=== PATIENT | female | born 1960 | race Caucasian/White ===

== ENCOUNTER 2020-06-07 11:11 | Outpatient (CLI) | payer MEDICAID ==
[~2020-06-07] VITALS: Ht 165.1 cm; Wt 76.1 kg
--- NOTE | ~2020-06-07 | HEMODYNAMI ---
PATIENT:ELIJAH MATHIAS MEDICAL RECORD: [id number] : 64 LOCATION:[facility] ADMISSION DATE: 06/07/20 Generatedon:06/07/202013:28 Patient name: ELIJAH MATHIAS Patient #: [id number] SSN: [id number] : 1960 Date of study: 06/07/2020 Page: Of Hemodynamic Procedure Report Patient Data Patient Demographics Procedure consent was obtained First Name: ELIJAH Gender: Female Last Name: MEY : 1960 Patient #: [id number] Age: 59 year(s) Race: SSN: [id number] Additional ID: [id number] Contact details Address: [place] [address] State: [place] City: [place] Zip code: [address] Past Medical History Allergies Allergen Reaction Date Comments Reported Other allergy 06/07/2020 CODINE Admission Admission Data Admission Date: 06/07/2020 Admission Time: 11:11 Arrival Date: 06/07/2020 Arrival Time: 0:00 Insurance Payor: Medicaid Height (in.): 64.96 BSA: 1.83 (m2) Height (cm.): 165 BMI: 27.92 (kg/m2) Weight (lbs.): 167.55 Weight (kg.): 76 Lab Results Lab Result Date: 06/07/2020 Lab Result Time: 0:00 Biochemistry Name Units Result Min Max BUN mg/dl 17 --(---*)-- 7 18 Creatinine mg/dl 0.8 --(-*--)-- 0.6 1.3 eGFR ml/min 78 *-(----)-- 90 120 NONAFRICAN CBC Name Units Result Min Max Hematocrit % 40.7 -*(----)-- 42 54 Hemoglobin g/dl 13.2 -*(----)-- 13.5 17.5 Procedure Procedure Types Cath Procedure Diagnostic Procedure C [facility] w/Coronaries Sedation Charges Moderate Sedation up to 15 minutes Procedure Description Procedure Date Procedure Date: 06/07/2020 Procedure Start Time: 13:13 Procedure End Time: 13:27 Procedure Staff Name Function Panda Cox MD Performing Physician Dedra Rivas RT Monitor Dior Daniel RN Nurse Bria Kaur RT Scrub Indication Abnormal nuclear perfusion study Procedure Data Cath Procedure Fluoroscopy Diagnostic fluoroscopy Total fluoroscopy Time: 1.6 time: 1.6 min min Diagnostic fluoroscopy Total fluoroscopy dose: 381 dose: 381 mGy mGy Contrast Material Contrast Material Type Amount (ml) Isovue 300 47 Entry Location Entry Primary Successful Side Size Upsize Upsize Entry Closure Succes sful Closure Location (Fr) 1 (Fr) 2 (Fr) Remarks Device Remarks Femoral Right 5 Fr Exoseal artery Estimated blood loss: 5 ml Diagnostic catheters Device Type Used For End Catheter Placement MULTIPACK JL 4.0 5Fr Left Coronary catheter Angiography MULTIPACK 3DRC 5Fr Right Coronary catheter Angiography MULTIPACK Pigtail 5 Fr LV Angiography catheter Procedure Complications No complications Procedure Medications Medication Administration Route Dosage 0.9% NaCl I.V. 100 ml/hr Oxygen etCO2 Nasal cannula 2 l/min Lidocaine 2% added to field 20 Heparin Flush Bag added to field 2 bags (1000units/500ml NS) Versed I.V. 2 mg Fentanyl I.V. 50 mcg Versed I.V. 2 mg Fentanyl I.V. 50 mcg Hemodynamics Rest BSA: 1.83 (m2) HGB: 13.2 (g/dl) O2 Consumption: Estimated: 167 (ml/min) O2 Consu mption indexed: Estimated:91.26 (ml/min/m) Heart Rate: 58 (bpm) Pressure Samples Time Site Value (mmHg) Purpose Heart Use Rate(bpm) 13:21 LV 155/13,19 Snapshot 66 Gradients Valve Time Site Site Mean SEP/DFP Peak To Heart Use 1 2 (mmHg) (sec/min) Peak Rate (mmHg) (bpm) Aortic 13:21 LV AO 64 Snapshots Pre Cath Intra NCS Post Cath Vital Signs Time Heart Resp SPO2 etCO2 NIBP (mmHg) Rhythm Pain Sedation Rate (ipm) (%) (mmHg) Status Level (bpm) 13:03:52 55 19 100 40.4 Measuring NSR 0 (11) 10(A) , No pain 13:03:58 61 19 100 37.4 167/97(117) NSR 0 (11) 10(A) , No pain 13:08:20 58 15 98 45.6 158/91(110) NSR 0 (11) 10(A) , No pain 13:12:40 60 12 99 47.9 145/85(110) NSR 0 (11) 10(A) , No pain 13:16:58 63 13 97 47.9 148/79(104) NSR 0 (11) 10(A) , No pain 13:21:12 63 13 97 42.6 143/86(109) NSR 0 (11) 10(A) , No pain 13:25:28 62 15 98 35.9 138/82(104) NSR 0 (11) 10(A) , No pain Medications Time Medication Route Dose Verified Delivered Reason Notes Eff ectiveness by by 13:02:11 0.9% NaCl I.V. 100 Panda Dior used for ml/hr Brooke Fredy procedure MD TEE 13:02:18 Oxygen etCO2 2 Panda Dior used for [facility]al l[facility] TEE 13:02:24 Lidocaine 2% added 20ml Panda Panda for local to vial [facility] anesthetic field MD BEATTY 13:02:28 Heparin Flush added 2 Panda Panda used for Bag to bags [facility] procedure (1000units/500ml field MD BEATTY NS) 13:10:37 Versed I.V. 2 mg Panda Dior for Brooke Fredy sedation MD TEE 13:10:54 Fentanyl I.V. 50 Panda Dior for mcg BrookeAndrew Daniel sedation MD TEE 13:15:33 Versed I.V. 2 mg Panda Dior for Brooke Fredy sedation MD TEE 13:15:42 Fentanyl I.V. 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 12:26:41 Time tracking: Regular hours (M-F 7:00 - 5:00) 12:26:57 Plan of Care:Hemodynamics will remain stable., Cardiac rhythm will remain stable., Comfort level will be maintained., Respiratory function will remain adequate., Patient/ family verbilizes understanding of procedure., Procedure tolerated without complication., Recovers from procedure without complications.. 12:43:03 Lab Result : Hemoglobin 13.2 g/dl 12:43: Lab Result : Hematocrit 40.7 % 12:43: Lab Result : eGFR NONAFRICAN 78 ml/min 12:43:03 Lab Result : BUN 17 mg/dl 12:43:03 Lab Result : Creatinine 0.8 mg/dl 12:43:34 Patient Height : 64.96 inches 12:43:38 Patient Weight : 167.55 lbs 12::42 Arrival Date: 06/07/2020 12:00:00 AM 12:44:16 Insurance Payor : Medicaid 12:44:36 Lab results completed and on chart. 13:00:14 Dedra ARSHAD(R) (CV) sent for patient. Start room use. 13:02:03 Vital chart was started 13:02:11 0.9% NaCl 100 ml/hr I.V. was administered by Dior Daniel RN; used for procedure; Verbal order read back and verified. 13:02:18 Oxygen 2 l/min etCO2 Nasal cannula was administered by Dior Daniel RN ; used for procedure; Verbal order read back and verified. 13:02:24 Lidocaine 2% 20ml vial added to field was administered by Panda Cox MD; for local anesthetic; Verbal order read back and verified. 13:02:28 Heparin Flush Bag (1000units/500ml NS) 2 bags added to field was administered by Panda Cox MD; used for procedure; Verbal order read back and verified. 13:06:21 Patient received from Pre/Post Procedure Room to CCL 1 Alert and oriented. Tansferred to table in Supine position. 13:06:23 Warm blankets applied, and juan diego hugger turned on for patient comfort. 13:06:24 Correct patient and procedure confirmed by team. 13:06:25 ECG and BP/O2 sat monitors applied to patient. 13:06:27 Baseline sample Acquired. 13:06:33 Rhythm: sinus rhythm 13:07:58 Full Disclosure recording started 13:07:59 - 13:08:05 H&P Date Dictated: 06/07/2020 H&P Addendum completed by physician on day of procedure. (MUST COMPLETE FOR ALL OUTPATIENTS), New H&P dictated by physician.. 13:08:07 Pre-procedure instructions explained to patient. 13:08:08 Pre-op teaching completed and patient verbalized understanding. 13:08:10 Family in patients room. 13:08:13 Patient NPO since Midnight. 13:08:27 Patient allergic to Other allergyCODINE 13:08:36 Is patient on blood thinner?No 13:08:38 Patient diabetic? No. 13:08:40 ----Pre-sedation anethsthesia assessment.---- 13:08:44 Previous problem with sedation/anesthesia? No ? 13:08:46 Snore? Yes 13:08:48 Sleep apnea? No 13:08:51 Opens mouth fully? Yes 13:08:54 Sticks out tongue? Yes 13:08:57 Airway obstruction? No ? 13:09:04 Dentures? Yes UPPER IN TIGHT 13:09:26 IV patent on arrival in left forearm with 0.9% NaCl at [facility]. 13:09:35 Right Radial & Right Groin area was prepped with chlora-prep and draped in sterile fashion 13:09:37 Alarms reviewed by R. N. 13:09:38 Sharps counted by scrub and verified by R.N. 13:09:39 Physician arrived 13:09:40 --------ALL STOP TIME OUT------ 13:09:45 Final Timeout: patient, procedure, and site verified with staff and physician. All members of the team are in agreement. 13:09:47 Right Radial & Right Groin site verified by team. 13:09:52 Fire Safety Assessment: A--An alcohol-based skin anteseptic being used preoperatively., C--Open oxygen or nitrous oxide is being used., D--An ESU, laser, or fiber-optic light is being used. 13:09:57 Physical assessment completed. ASA score P 2 - A patient with mild systemic disease as per Panda Cox MD. 13:10:07 2) 60-89 Mildly reduced kidney function, and other findings (as for stage 1) point to kidney disease. 13:10:12 Maximum allowable contrast dose (3.7 X eGFR X 0.75)216 ml. 13:10:18 Sedation plan: IV Moderate Sedation Medication:Versed, Fentanyl 13:10:25 Use device set Radial Dx or PCI 13:10:27 ACIST Syringe (18653) opened to sterile field. 13:10:27 Medline Cath Pack ([id number]) opened to sterile field. 13:10:28 Bag Decanter (2002) opened to sterile field. 13:10:29 ACIST Hand Control (08799) opened to sterile field. 13:10:30 ACIST Manifold (21481) opened to sterile field. 13:10:32 MBrace Wrist Support (707471803) opened to sterile field. 13:10:34 EMERALD Guide Wire (293-017) opened to sterile field. 13:10:34 SHEATH 6FR RAIN (4591539) opened to sterile field. 13:10:37 Versed 2 mg I.V. was administered by Dior Daniel RN; for sedation; Verbal order read back and verified. 13:10:54 Fentanyl 50 mcg I.V. was administered by Dior Daniel RN; for sedation ; Verbal order read back and verified. 13:10:54 Zero performed for pressure channel P1 13:11:06 Procedure started. 13:12:35 Risk of Mortality: 0.1 13:12:40 Risk of blood transfusion: 0.2 13:12:44 Risk of SANDI: 1.0 13:13:05 Stress Test: yes; abnormal ANTERIOR 13:13:17 Local anesthetic to right radial artery with Lidocaine 2% by Panda Cox MD.INITIAL ACCESS ONLY 13:15:33 Versed 2 mg I.V. was administered by Dior Daniel RN; for sedation; Verbal order read back and verified. 13:15:42 Fentanyl 50 mcg I.V. was administered by Dior Daniel RN; for sedation ; Verbal order read back and verified. 13:16:19 UNABLE TO OBTAIN RADIAL ACCESS, MOVING TO RIGHT GROIN. 13:16:25 Local anesthetic to right femoral artery with Lidocaine 2% by Panda Morales MD.ADDITIONAL ACCESS 13:16:35 SHEATH 5FR Admire (RHN637) opened to sterile field. 13:16:51 DIAGNOSTIC Multipack 5Fr catheter set ([id number]) opened to sterile field. 13:17:22 A 5 Fr sheath was inserted into the Right Femoral artery 13:17:33 Use device set Multipack Set 13:17:40 A MULTIPACK JL 4.0 5Fr catheter was advanced over the wire and used for Left Coronary Angiography. 13:17:47 LCA angiography performed. 13:17:51 Injector settings: Ml/sec: 3, Volume: 6, 13:18:44 Catheter removed. 13:18:55 A MULTIPACK 3DRC 5Fr catheter was advanced over the wire and used for Right Coronary Angiography. 13:19:21 RCA angiography performed. 13:19:25 Injector settings: Ml/sec: 3, Volume: 6, 13:19:28 Catheter removed. 13:19:35 A MULTIPACK Pigtail 5 Fr catheter was advanced over the wire and used for LV Angiography. 13:19:44 Injector settings: Ml/sec: 5, Volume: 15, 13:19:47 LV gram done using CRUZ 13:19:49 LV hemodynamics recorded. 13:21:26 EF : 60 % 13:21:39 EXOSEAL 5Fr (EX500) opened to sterile field. 13:22:07 Tegaderm 4 x 4 (1626W) opened to sterile field. 13:22:13 Catheter removed. 13:22:31 Sheath removed intact; hemostasis achieved with Exoseal to the Right Femoral artery. 13:22:35 Procedure ended.(Physican Out) 13:22:54 Contrast amount:Isovue 300 47ml. 13:22:57 Maximum allowable dose exceeded? No. 13:23:05 Fluoroscopy time 01.60 minutes. 13:23:11 Fluoroscopy dose: 381 mGy 13:23:11 Flurop Dose total: 381 13:23:20 Dose Area Product 60993 mGy/cm. 13:23:22 Sharps counted by scrub and verified by R.N. 13:23:24 Insertion/operative site no bleeding no hematoma. 13:23:30 Post-op/insertion site Right Femoral artery dressed using a 4 x 4 and Tegaderm. 13:23:36 Post-procedure physical assessment completed. ASA score P 2 - A patient with mild systemic disease as per Panda Cox MD. 13:23:40 Post procedure rhythm: unchanged. 13:23:45 Estimated blood loss: 5 ml 13:23:47 Post procedure instruction explained to patient.Patient verbalizes understanding. 13:23:48 Patient needs reinforcement of post procedure teaching. 13:24:16 Procedure type changed to Cath procedure, Diagnostic procedure, LH, C w/Coronaries, Sedation Charges, Moderate Sedation up to 15 minutes 13:24:18 Procedure and supply charges have been captured, reviewed, submitted an d are correct. 13:25:02 Procedure Complication : No complications 13:26:15 Vital chart was stopped 13:26:18 [facility] Findings: mild to moderate CAD (<70%) 13:26:20 Operative report dictated upon procedure completion. 13:26:21 See physician's report for complete and final results. 13:26:23 Report given to Pre/Post Procedure Room. 13:26:28 Patient transfered to Pre/Post Procedure Room with Stretcher. 13:27:00 Procedure ended. 13:27:00 Full Disclosure recording stopped 13:27:03 End room use (Document Last) Device Usage Item Name Manufacture Quantity Catalog Hospital Part Current Minima l Lot# / Number Charge Number Stock Stock Serial# Code ACIST Acist 1 31795 212621 687299 [id number] 20 Syringe Medical (80633) Systems Inc Medline Medline 1 [id number] 090872 36781 786808 5 Cath Pack ([id number]) Bag Microtek 1 178346 12549 858241 5 Decanter Medical Inc. () ACIST Hand Acist 1 52772 045227 831356 802113 5 Control Medical (54201) Systems Inc ACIST Acist 1 88613 254835 004398 867288 5 Manifold Medical (61157) Systems Inc MBrace Advanced 1 140-0250-00 224599 97844 354161 5 Wrist Vascular Support Dynamics ([id number]) EMERALD Cardinal 1 502-455 216167 321022 179270 5 Guide Wire Health (502-455) SHEATH 6FR Cardinal 1 5016789 493416 6438810 238339 5 RAIN Health (5895336) SHEATH 5FR Terumo 1 HQZ445 627113 472485 189143 5 Admire (EBE737) DIAGNOSTIC Cardinal 1 [id number] 420580 22787 453709 30 Multipack Health 5Fr catheter set (TL1808) MULTIPACK Cardinal 1 839476 5 JL 4.0 5Fr Health catheter MULTIPACK Cardinal 1 645842 5 3DRC 5Fr Health catheter MULTIPACK Cardinal 1 942683 5 Pigtail 5 Health Fr catheter EXOSEAL 5Fr Cardinal 1 EX500 451076 503884 552141 10 (EX500) Health Tegaderm 4 3M 1 1626W 818935 773832 034053 5 x 4 (1626W) Signature Audit [place] Stage Time Signature Unsigned Intra-Procedure 06/07/2020 Dedra 1:27:32 PM Rob RT(R) (CV) Intra-Procedure 06/07/2020 Dior Daniel 1:27:57 PM RN Intra-Procedure 06/07/2020 Panda Browning 1:28:21 PM Andrew BEATTY [address] [place] [address]
[2020-06-07] MEDS ORDERED: CHANTIX 1 MG TAB1 MG PO (11:28)
[2020-06-07] MEDS ORDERED: OMEPRAZOLE40 MG PO (11:28)
[2020-06-07] MEDS ORDERED: LIPITOR20 MG PO (11:29)
[2020-06-07] MEDS ORDERED: KLONOPIN1 MG PO (11:30)
[2020-06-07] MEDS ORDERED: TOPROL XL25 MG PO (11:31)
[2020-06-07] MEDS ORDERED: ZOLOFT25 MG PO (11:31)
[2020-06-07 11:55] VITALS: BP 145/65; Ht 165.1 cm; Wt 76.1 kg
[2020-06-07 12:03] LABS: BASOPHILS 0.3 % (0-2); EOSINOPHILS 3.4 % (0-7); HEMATOCRIT 40.7 % (36.0-48.0); HEMOGLOBIN 13.2 g/dL (12-16); IMMATURE GRANULOCYTES 0.5 % (0-5); LYMPHOCYTES 34.3 % (15-50); MCH 29.5 pg (26.0-34.0); MCHC 32.4 g/dL (31.0-37.0); MCV 90.8 fL (80.0-100.0); MEAN PLATELET VOLUME 9.9 fL (7.4-10.4); MONOCYTES 5.3 % (2-11); NEUTROPHILS 56.2 % (40-80); PLATELET COUNT 195 10x3/uL (130-400); RBC 4.48 10x6/uL (4.00-5.40); RDW 13.2 % (11.5-14.5); WBC 6.2 10x3/uL (4.8-10.8)
[2020-06-07 12:18] LABS: ALT (SGPT) 29 U/L (10-68); CALC OSMOLALITY 290 mosm/kg (275-300); CALCIUM 8.9 mg/dL (8.5-10.1); CHLORIDE - SERUM 108 mmol/L (98-107); CHOL - HDL RATIO 4.4 ratio (2.3-4.1); CHOLESTEROL, TOTAL 201 mg/dL (0-200); CREATININE - SERUM 0.8 mg/dL (0.6-1.3); GLUCOSE 97 mg/dL (74-106); HDL CHOLESTEROL 46 mg/dL (32-96); LDL CHOLESTEROL 118 mg/dL (0-100); LDL-HDL RATIO 2.6 ratio (1.5-3.5); POTASSIUM - SERUM 4.1 mmol/L (3.5-5.1); SODIUM 145 mmol/L (136-145); TRIGLYCERIDE 189 mg/dL (30-200); UREA NITROGEN 17 mg/dL (7-18); eGFR NON AFRICAN AMERICAN 78 mL/min (90-120)
--- NOTE | 2020-06-07 13:40 | NUR ---
PT RECEIVED VIA STRETCHER FROM PAPER TESTER FOR RECOVERY. PT SLEEPING BUT VERBALLY AROUSABLE. IV PATENT INFUSING VIA ORDERS TO R ARM. 5FR EXOCELE TO R GROIN, DRESSING CDI NO S/S HEMATOMA OR BLEEDING. LEG PINK AND WARM, PEDAL PULSES PALPABLE. R WRIST HAS SM BANDAGE WHERE ACCESS WAS ATTEMPTED. NO BLEEDING NOTED. PT PLACED ON CARDIAC MONITORS, HR 61, BP 163/86, RR 16, SAT 99. O2 PLACED VIA NC AT 1L. DR GRUBBS WAS IN AND SPOKE W S/O REGARDING PROCEDURE RESULTS. CALL LIGHT IN REACH
--- NOTE | 2020-06-07 14:00 | NUR ---
PT RESTING COMFORTABLY, DENIES PAIN OR DISCOMFORT. BANDAGE ON WRIST, CDI. R GROIN SOFT, DRESSING REMAINS CDI NO S/S HEMATOMA OR BLEEDING. PEDAL PULSES PALPABLE. CALL LIGHT IN REACH, S/O AT BS.
--- NOTE | 2020-06-07 14:48 | NUR ---
R GROIN SOFT, NO S/S HEMATOMA. R WRIST BANDAGE CDI. HOB ELEVATED SLIGHTLY, PO FLUIDS SERVED. VSS AT PRESENT. O2 REMOVED, SAT 96 ON ROOM AIR. CALL LIGHT IN REACH, PT DENIES PAIN OR NEEDS AT THIS TIME.
--- NOTE | 2020-06-07 15:15 | NUR ---
DISCHARGE INSTRUCTIONS REVIEWED W PT AND S/O, BOTH VERBALIZED UNDERSTANDING. IV REMOVED W CATH INTACT, MONITORS REMOVED. BANDAGE ON R WRIST, REMAINS CDI. R GROIN SOFT, NO S/S BLEEDING OR HEMATOMA. PT UP TO DRESS FOR DISCHARGE. 1420 PT AMBULATED TO BR, VOIDING W/O DIFFICULITY.
--- NOTE | 2020-06-07 15:30 | NUR ---
PT DISCHARGED VIA WC W ALL BELONGINGS AND DISCHARGE PAPERWORK IN HAND TO S/O WAITING IN PRIVATE VEHICLE.
--- NOTE | 2020-06-09 15:26 | OP ---
PATIENT NAME: ELIJAH MATHIAS MEDICAL RECORD: [id number] :64 LOCATION:[facility] ADMISSION DATE: SURGEON: YULI GRUBBS MD DATE OF OPERATION: 06/07/2020 PROCEDURE: Left heart catheterization, selective coronary angiography, right femoral artery approach. CATHETERS: A 5-Dutch sheath, 5/4 left and right Marva, 5/4 pig. The procedure was well tolerated. The patient returned to [place], sheath removed. ExoSeal device was placed. FINDINGS: Left ventriculography in 30-degree CRUZ view: Normal wall motion and normal systolic function. CORONARY ANATOMY: LEFT MAIN: Left main is free of disease. LAD: Free of disease in the diagonal system. CIRCUMFLEX: Free of disease in the marginal system. RIGHT CORONARY ARTERY: Dominant artery, gives rise to PDA, free of disease. IMPRESSION: Normal LV systolic function, normal coronary anatomy. TRANSINT:[id number] Voice Confirmation ID: [id number] DOCUMENT ID: [id number] YULI GRUBBS MD at 1526 CC: [id number] DICTATION DATE: 06/07/20 1338 DRESSING ROOM ATTENDANT: 06/07/201926 DEP CLI 06/07/20 [facility] [address] [place] [address]
== END 2020-06-07 15:30 | disposition home or self-care (01) ==
LOC: D.CATH 11:11
PROVIDERS: ATTEND Internal Medicine Interventional Cardiology
DX: I20.9 Angina pectoris, unspecified (principal); E78.5 Hyperlipidemia, unspecified; I10 Essential (primary) hypertension; F17.200 Nicotine dependence, unspecified, uncomplicated

== ENCOUNTER → 2021-02-24 14:21 | Outpatient (CLI) | payer OTHER ==
[2020-06-07 11:55] VITALS: BMI 27.9
[~2021-02-24 14:21] MED LIST: CHANTIX 1 MG TAB1 MG PO; KLONOPIN1 MG PO; LIPITOR20 MG PO; OMEPRAZOLE40 MG PO; TOPROL XL25 MG PO; ZOLOFT25 MG PO
== END | disposition home or self-care (01) ==
LOC: D.RT 14:21
PROVIDERS: ATTEND Internal Medicine Pulmonary Disease
DX: R06.09 Other forms of dyspnea (principal)